=== PATIENT | male | born 1955 | race Caucasian/White ===

== ENCOUNTER 2016-04-16 12:39 | Emergency (ER) | payer OTHER ==
[2016-04-16 13:05] VITALS: BP 101/54; PULSE 71; RESP 16; TEMP 97.7; O2SAT 98
--- NOTE | 2016-04-16 14:14 | EDPHY ---
H & P Chief Complaint Nursing Narrative: Had Sz last night and fell and hit right side of face. Laceration. Unwitnessed . pt has history of seizures. Epilepsy.Denies issue with vision. Time Seen by Provider: 04/16/16 13:53 - Medical/Surgical History Hx Asthma: No Hx Chronic Respiratory Disease: No Hx Diabetes: No Hx Cardiac Disease: No Hx Renal Disease: No Hx Cirrhosis: No Hx Alcoholism: No Hx HIV/AIDS: No Hx Splenectomy or Spleen Trauma: No Other PMH: PCP NONE. Sz Epilepsy , left hip replacement. TETanus UTD. Flu Vacc NONE - Social History Smoking Status: Never smoked Constitutional: Initial Vital Signs Temperature (C) 36.5 C 04/16/16 12:58 Heart Rate 71 04/16/16 12:58 Respiratory Rate 16 04/16/16 12:58 Blood Pressure 101/54 L 04/16/16 12:58 O2 Sat (%) 98 04/16/16 12:58 O2 Delivery Mode Room Air Allergies/Adverse Reactions: No Known Allergies Allergy (Verified 04/16/16 13:05) Home Medications: Medication Instructions Recorded Multivitamins [Multivitamin (*)] 1 tab PO HS 12/20/13 [place]-3 Fatty Acids [Fish Oil 1000 1,000 mg PO BID 12/20/13 mg (*)] Vitamin B Complex [B Complex] 1 tab PO DAILY 12/20/13 levETIRAcetam [Keppra 500 mg (*)] 750 mg PO BID #30 tab 12/22/13 Calcium 04/16/16 VITAMIN D 04/16/16 Departure - Departure Disposition: Home, Routine, Self-Care Clinical Impression: Laceration of head Condition: Good Instructions: Laceration (ED), Care For Your Stitches (ED), Acute Wound Care ( ED) Additional Instructions: Follow-up with your primary care doctor and a neurologist for continued evaluation and care Please maintain seizure precautions as discussed including no driving, bathing or swimming or performing other activities that could result in serious injury or if you have another seizure until cleared by your doctor You have been offered CT scans for evaluation of trauma and blood studies and EKG for evaluation of your seizures, you have declined Stitches to be removed in 7 days If symptoms worsen or new symptoms develop return to the clinic or the closest emergency department for recheck Referrals: NONE *PRIMARY CARE P,. [Primary Care Provider] - As per Instructions Deric Hanna MD [Medical Doctor] - As per Instructions
--- NOTE | 2016-04-16 17:14 | UCPHY ---
H & P Patient Type: Established Chief Complaint Nursing Narrative: Had Sz last night and fell and hit right side of face. Laceration. Unwitnessed . pt has history of seizures. Epilepsy.Denies issue with vision. Time Seen by Provider: 04/16/16 13:53 HPI/ROS: Chief complaint: Seizure resulting in fall with forehead laceration History of present illness: This is a 60-year-old male with a known history of seizures currently on antiepileptic medications which he is taking as prescribed who presents to the clinic for evaluation after having a seizure last night which resulted in a fall, during which he struck his head and cut it. He presents for evaluation and treatment of the wound. He states he has a minor headache associated with the wound. He is up-to-date on his tetanus. He denies pain or trauma to the rest of body including the neck, chest, abdomen, pelvis or extremities. Further no report of paresthesias, weakness or paralysis or bowel or bladder dysfunction. Review of systems: A 10 point review of systems was obtained and other than described above was negative - Medical/Surgical History Hx Asthma: No Hx Chronic Respiratory Disease: No Hx Diabetes: No Hx Cardiac Disease: No Hx Renal Disease: No Hx Cirrhosis: No Hx Alcoholism: No Hx HIV/AIDS: No Hx Splenectomy or Spleen Trauma: No Other PMH: PCP NONE. Sz Epilepsy , left hip replacement. TETanus UTD. Flu Vacc NONE - Family History Significant Family History: Other - Social History Smoking Status: Never smoked - Physical Exam Exam: General Appearance: Alert, nontoxic Eyes: PERRLA. EOM intact. ENT: No hemotympanum. Respiratory: Lungs clear to auscultation bilaterally. Cardiac: Regular rate and rhythm. Gastrointestinal: Bowel sounds normal. Soft, nondistended, nontender. Neurological: Alert and oriented x4. Cranial nerves 2-12 grossly intact. Strength and sensation intact and symmetrical. Skin: 5 cm laceration of the right orthodoxy region Musculoskeletal: Bruising around the right eye. Tenderness around the right orthodoxy region. The rest of the head is nontender. The spine is nontender to palpation along its entire length, there is no crepitus, bony deformity or step- off. Patient moving all extremities without difficulty. He is ambulating well. Constitutional: Initial Vital Signs Temperature (C) 36.5 C 04/16/16 12:58 Heart Rate 71 04/16/16 12:58 Respiratory Rate 16 04/16/16 12:58 Blood Pressure 101/54 L 04/16/16 12:58 O2 Sat (%) 98 04/16/16 12:58 O2 Delivery Mode Room Air Allergies/Adverse Reactions: No Known Allergies Allergy (Verified 04/16/16 13:05) Home Medications: Medication Instructions Recorded Multivitamins [Multivitamin (*)] 1 tab PO HS 12/20/13 [place]-3 Fatty Acids [Fish Oil 1000 1,000 mg PO BID 12/20/13 mg (*)] Vitamin B Complex [B Complex] 1 tab PO DAILY 12/20/13 levETIRAcetam [Keppra 500 mg (*)] 750 mg PO BID #30 tab 12/22/13 Calcium 04/16/16 VITAMIN D 04/16/16 Medical Decision Making Procedures: Procedure: Laceration repair. Verbal consent was obtained from the patient. The 5 cm laceration on the right orthodoxy region was anesthetized in the usual fashion. The wound was irrigated, draped and explored to its base with a gloved finger. There were no deep structures involved. No tendon injury was identified. The wound was repaired with 5 0 Prolene, 14 simple interrupted sutures. The wound repair was simple. The procedure was performed by myself. ED Course/Re-evaluation: Patient is seen under the supervision of my secondary supervising physician Dr. Braeden Romero. Patient presents to the clinic for evaluation of a laceration to his forehead he sustained after having a seizure and falling last night. On presentation patient is nontoxic. He is afebrile and vital signs are stable. Laceration is explored, appears to be primarily a skin avulsion. The wound has been cleaned, repaired and dressed as above. I have discussed with him I would like to pursue imaging studies including CT scans to rule out significant injury including bony injuries and intracranial injuries, he has declined. I discussed I would like to pursue basic laboratory studies and EKG to assess his seizure. He has declined. Patient understands I cannot rule out significant causes of injury which could be life threatening as well as significant causes or complications of seizures which could be life-threatening without these tests , he has voiced understanding and continues to decline and is competent to make this decision. I have asked to follow up with a primary care doctor and a neurologist. He states he is in between doctors right now and is actively looking for a doctor. Referral information is given. Strict return precautions are given. Seizure precautions are discussed. Patient voiced understanding and agreement with plan. Differential Diagnosis: Included but not limited to soft tissue injury, bony fracture, intracranial bleed, breakthrough seizures, cardiac dysrhythmias, electrolyte disturbances, infectious pathology Departure - Departure Disposition: Home, Routine, Self-Care Clinical Impression: Laceration of head Qualifiers: Encounter type: initial encounter Location of open wound of head: scalp Foreign body presence: without foreign body Qualifier Code: (S01.01XA) Laceration without foreign body of scalp, initial encounter Condition: Good Instructions: Care For Your Stitches (ED), Laceration (ED), Acute Wound Care ( ED) Additional Instructions: Follow-up with your primary care doctor and a neurologist for continued evaluation and care Please maintain seizure precautions as discussed including no driving, bathing or swimming or performing other activities that could result in serious injury or if you have another seizure until cleared by your doctor You have been offered CT scans for evaluation of trauma and blood studies and EKG for evaluation of your seizures, you have declined Stitches to be removed in 7 days If symptoms worsen or new symptoms develop return to the clinic or the closest emergency department for recheck Referrals: NONE *PRIMARY CARE P,. [Primary Care Provider] - As per Instructions Deric Hanna MD [Medical Doctor] - As per Instructions - PQRS PQRS Measurement: N/A
== END 2016-04-16 15:07 | disposition home or self-care (01) ==
LOC: CED 12:39
PROC: 0HQ1XZZ Repair Face Skin, External Approach (ICD-10-PCS; principal; 2016-04-16)
DX: S01.81XA Laceration without foreign body of other part of head, initial encounter (principal); W19.XXXA Unspecified fall, initial encounter; Y92.019 Unspecified place in single-family (private) house as the place of occurrence of the external cause; G40.909 Epilepsy, unspecified, not intractable, without status epilepticus; Z96.642 Presence of left artificial hip joint
CPT/HCPCS: G0463-PO